=== PATIENT | male | born 1980 | race African-American/Black ===

== ENCOUNTER 2020-06-30 02:26 | Inpatient (IN) | payer MEDICAID ==
[~2020-06-30] VITALS: Ht 170.2 cm; Wt 104.5 kg
--- NOTE | 2020-06-30 02:28 | NUR ---
PT CAME TO THE ER C/O N/V X 2 DAYS. PT AAOX4, VSS, RESPIRATIONS EVEN AND UNLABORED ON RA W/ NAD NOTED. PT CONNECTED TO THE MONITOR AND POX
[2020-06-30] MEDS ORDERED: DICYCLOMINE HCL INJ 20 MG/2 ML AMPUL IM ONE ×2 (02:46→03:00)
[2020-06-30] MEDS ORDERED: ONDANSETRON HCL/PF 4 MG/2 ML VIAL ONE (02:50)
--- NOTE | 2020-06-30 02:52 | NUR ---
BLOOD COLLECTED AND SENT TO LAB
[2020-06-30] MEDS ORDERED: ONDANSETRON HCL/PF 4 MG/2 ML VIAL IVP ONE (03:00)
[2020-06-30] MEDS ORDERED: IV NS 0.9% 500 ML BAG IV ONE (03:00)
--- NOTE | 2020-06-30 03:29 | NUR ---
PT STILL UNABLE TO PROVIDE URINE. AWARE
[2020-06-30 03:33] LABS: BASOPHILS % (AUTO) 0.2 % (0.0-2.0); CALCIUM, SERUM 8.8 mg/dL (8.5-10.1); EOSINOPHILS % (AUTO) 0.8 % (0.0-6.0); HEMATOCRIT 42 % (39-51); LYMPHOCYTES # (AUTO) 0.7 /CMM (0.8-4.8); LYMPHOCYTES % (AUTO) 18.3 % (20.0-44.0); MEAN CORPUSCULAR HGB CONC 34 g/dl (31.0-36.0); MEAN CORPUSCULAR VOLUME 94 fL (80-96); MONOCYTES # (AUTO) 0.4 /CMM (0.1-1.30); MONOCYTES % (AUTO) 10.9 % (2.0-12.0); NEUTROPHILS # (AUTO) 2.8 /CMM (1.8-8.9); NEUTROPHILS % (AUTO) 69.8 % (43.0-81.0); PLATELET COUNT (AUTO) 261 /CMM (150-450); POTASSIUM 5.5 mmol/L (3.5-5.1)
[2020-06-30 03:40] LABS: ALBUMIN 3.8 g/dL (3.4-5.0); BILIRUBIN,TOTAL 0.6 mg/dL (0.2-1.0)
[2020-06-30] MEDS ORDERED: BARIUM SULFATE 98% 135 ML SUSP.RECON PO ONE (03:58)
[2020-06-30] MEDS ORDERED: BARIUM SULFATE SUSP 450 ML BOTTLE PO ONE (03:59)
[2020-06-30] MEDS ORDERED: IV NS 0.9% 250 ML IV ONE (05:24)
[2020-06-30] MEDS ORDERED: IOHEXOL-300 100 ML VIAL IV ONE (05:24)
[2020-06-30] MEDS ORDERED: CT SWABBABLE VALVE TRANS SET 1 EA INFUS.SET MC ONE (05:24)
--- NOTE | 2020-06-30 05:30 | NUR ---
[facility]
--- NOTE | 2020-06-30 06:56 | NUR ---
DR. SANCHEZ SPEAKING ON THE PHONE WITH DR. COOPER (SURGERY LABORATORY CHIEF)
--- NOTE | 2020-06-30 07:16 | NUR ---
COVID SWAB COLLECTED AND SENT TO LAB
--- NOTE | 2020-06-30 07:30 | NUR ---
ENDORSEMENT RECEIVED FROM ANASTACIA JOE FOR EBER
--- NOTE | 2020-06-30 09:07 | NUR ---
BED 320-2
--- NOTE | 2020-06-30 09:11 | NUR ---
REPOTR GIVEN TO PIERRE JOE OF [facility]
--- NOTE | 2020-06-30 09:40 | NUR ---
RN OPENING NOTE THE PATIENT IS RECEIVED ON A [facility]. PATIENT SAFELY TRANSFERRED SELF FROM [facility] TO BED. PATIENT IS ALERT AND ORIENTED X4. DENIES PAIN. RESPIRATION REGULAR AND UNLABORED. IN ROOM AIR AND DENIES SOB. NOTED RAC G 20 PATENT AND SALINE LOCKED. PROVIDED ORIENTATION TO THE FLOOR/UNIT AND THE PATIENT VERBALIZED UNDERSTANDING. BED LOW AND LOCKED. SIDE RAILS UP X2. CALL LIGHT WITHIN REACH. WILL CONTINUE TO MONITOR.
[2020-06-30 10:00] VITALS: BP 147/94
[2020-06-30] MEDS ORDERED: MORPHINE SULFATE INJ 2 MG/ML DISP.SYRIN IV PRN (10:30)
[2020-06-30] MEDS ORDERED: ONDANSETRON HCL/PF 4 MG/2 ML VIAL IVP PRN (10:30)
--- NOTE | 2020-06-30 12:20 | NUR ---
RN NOTE THE PATIENT STATED THAT HE HAD BOWEL MOVEMENT THAT LOOKED LIKE THERE WAS BLOOD. THE PATIENT IS MADE AWARE NOT TO FLUSH NEXT TIME HE HAS BOWEL MOVEMENT IN ORDER FOR A NURSE TO CHECK IT. DR HERNANDZE MADE AWARE. NO NEW ORDERS PER DR HERNANDEZ.
[2020-06-30 15:48] VITALS: BP 130/74
[2020-06-30] MEDS: IV D5/0.45 NACL 1,000 ML IV PRN (16:04)
--- NOTE | 2020-06-30 16:04 | NUR ---
RN NOTE D5 1/2 NS STARTED LATE AT 1604 BECAUSE THE PATIENT HAD BEEN REFUSING PRIOR THAT.
--- NOTE | 2020-06-30 16:31 | NUR ---
RN NOTE WAITING FOR DR HERNANDEZ TO CALL BACK TO GET AN ORDER OF SOCIAL SERVICE CONSULT SINCE THE PATIENT IS HOMELESS.
--- NOTE | 2020-06-30 18:20 | NUR ---
RN CLOSING NOTE THE PATIENT ALERT AND ORIENTED X4. DENIES PAIN. IN ROOM AIR AND OXYGEN SATURATION LEVEL IS AT 98%. DENIES SOB. RESPIRATION REGULAR AND UNLABORED. RAC G 20 PATENT AND D5 1/2 NS INFUSING AT 100ML/HR AND NO S/S INFILTRATION NOTED. BED LOW AND LOCKED. SIDE RAILS UP X2. CALL LIGHT WITHIN REACH. WILL ENDORSE TO HEALTH CARE CONSULTANT.
--- NOTE | 2020-06-30 18:25 | NUR ---
RN NOTE NO MORE BOWEL MOVEMENT EXCEPT THE ONE AROUND [address] HERNANDEZ WAS MADE AWARE.
--- NOTE | 2020-06-30 18:56 | NUR ---
RN NOTE SOCIAL SERVICE CONSULT PLACED PER DR HERNANDEZ ORDER.
[2020-06-30 20:00] VITALS: BP 125/84
--- NOTE | 2020-06-30 20:00 | NUR ---
RN NOTES ALERT AND ORIENTED X 4, ON ROOM AIR, NO COMPLAIN OF PAIN, CALM, NPO AT THIS TIME. NS AT D5 1/2 NS AT 100ML/HR. REFUSING BODY ASSESSMENT.
[2020-06-30 22:00] VITALS: BP 125/84
[2020-07-01] MEDS: IV D5/0.45 NACL 1,000 ML IV PRN (02:03)
--- NOTE | 2020-07-01 06:16 | NUR ---
RN NOTES ALERT AND ORIENTED X4, CALM, STABLE ON ROOM AIR, NPO FOR POSSIBLE ILEUS VS VOLVULUS, D5N1/2 NS AT 100 ML/HR, ENDOSCOPIC INTERVENTION NOT INDICATED AT THIS TIME, CONTINUE IV HYDRATION, PROTONIX IV, FOR VASCULAR SURGERY CONSULT AND SMALL BOWEL FOLLOW THROUGH STUDY.
[2020-07-01 06:49] LABS: BASOPHILS % (AUTO) 0.2 % (0.0-2.0); EOSINOPHILS % (AUTO) 2.7 % (0.0-6.0); HEMATOCRIT 38 % (39-51); HEMOGLOBIN 12.7 g/dL (13.5-17.5); LYMPHOCYTES # (AUTO) 1.1 /CMM (0.8-4.8); LYMPHOCYTES % (AUTO) 33.8 % (20.0-44.0); MEAN CORPUSCULAR HGB CONC 34 g/dl (31.0-36.0); MEAN CORPUSCULAR VOLUME 92 fL (80-96); MONOCYTES # (AUTO) 0.5 /CMM (0.1-1.30); MONOCYTES % (AUTO) 15.1 % (2.0-12.0); NEUTROPHILS # (AUTO) 1.6 /CMM (1.8-8.9); NEUTROPHILS % (AUTO) 48.2 % (43.0-81.0); PLATELET COUNT (AUTO) 247 /CMM (150-450); WHITE BLOOD COUNT (AUTO) 3.3 K/uL (4.3-11.0)
[2020-07-01 07:11] LABS: BILIRUBIN,TOTAL 0.2 mg/dL (0.2-1.0); MAGNESIUM 1.9 mg/dL (1.8-2.4); PHOSPHORUS 2.4 mg/dL (2.5-4.9); POTASSIUM 3.5 mmol/L (3.5-5.1); TOTAL PROTEIN, SERUM 6.1 g/dL (6.4-8.2)
[2020-07-01 07:30] LABS: THYROID STIMULATING HORMONE 0.208 uIU/mL (0.358-3.74)
--- NOTE | 2020-07-01 07:40 | NUR ---
MS/RN OPENING NOTES RECEIVED PATIENT ON BED, SLEEPING EASILY AROUSABLE BY NAME AND LIGHT TOUCH. ALERT AND ORIENTED X4. PATIENT DENIES PAIN AT THIS TIME. PATIENT IN NO APPARENT RESPIRATORY DISTRESS NOTED. WILL CONTINUE TO MONITOR.
[2020-07-01 08:00] VITALS: BP 144/79
[2020-07-01] MEDS ORDERED: PANTOPRAZOLE 40 MG VIAL IV SCH (09:00)
--- NOTE | 2020-07-01 12:34 | NUR ---
MS/RN NOTES DR. MCKEON ORDER ADVANCE THE DIET TO CLEAR LIQUID, NOTED AND CARRIED OUT.
--- NOTE | 2020-07-01 12:43 | NUR ---
MS/RN NOTES DR. DAVID DURHAM ADVANCE DIET TOLERATED NOTED AND CARRIED OUT. Addendum: 07/01/20 at 1249 by TIFFANI FAJARDO RN DUPLICATE
--- NOTE | 2020-07-01 12:49 | NUR ---
MS/RN NOTES DR. HERNANDEZ ORDER ADVANCE DIET TOLERATED, TO CLEAR LIQUID, SOFT TO REGULAR, PATIENT CAN DISCHARGE. NOTED AND CARRIED OUT.
--- NOTE | 2020-07-01 15:33 | NUR ---
MS/RN NOTES CLEAR LIQUID DIET WAS TOLERATED WELL. NO NAUSEA AND VOMITING. NO STOMACH UPSET PER PATIENT. 1 HOUR AFTER SOFT DIET WAS GIVEN AND TOLERATED WELL. PATIENT VERBALIZED THAT HE WANT LEAVE. DISCHARGED INSTRUCTIONS WAS GIVEN AND VERBALIZED UNDERSTANDING. PATIENT LEFT THE HOSPITAL IN MEDICALLY STABLE CONDITION. PATIENT LEFT ALONE.
[2020-07-01] MEDS ORDERED: NEUTRA PHOS 1 POWD.PACKET PO ONE (16:00)
== END 2020-07-01 15:35 | disposition home or self-care (01) | DRG 247 ==
LOC: ER 02:28 → MED 09:26
DX: K56.7 Ileus, unspecified (principal); A08.4 Viral intestinal infection, unspecified; E87.5 Hyperkalemia; Z59.0 Homelessness; D72.819 Decreased white blood cell count, unspecified; E66.9 Obesity, unspecified; F12.90 Cannabis use, unspecified, uncomplicated; R74.8 Abnormal levels of other serum enzymes; Z68.36 Body mass index [BMI] 36.0-36.9, adult
CPT/HCPCS: 36415; 80048-TC; 80053-TC; 80061-TC; 80076-TC; 83605-TC; 83690-TC; 83735-TC; 84100-TC; 84443-TC; 85025-TC; 85610-TC; 87081-TC; C9113; C9803; G0378; J0500; J2405; J3490; J7050; Q9967